=== PATIENT | female | born 1985 | race Caucasian/White ===

== ENCOUNTER → 2016-09-08 | Outpatient (CLI) | payer OTHER ==
[~2016-09-08] MED LIST: OXYC-360 PO
--- NOTE | 2016-09-09 16:06 | EKG ---
Date Performed: 09/08/2016 Time Performed: 13:29:00 PTAGE: 30 years EKG: Sinus rhythm . Possible septal infarct - age undetermined Abnormal ECG NO PREVIOUS TRACING DOCTOR: Dary Paz Interpretating Date/Time 09/09/2016 16:05:35
== END ==
LOC: HCAV 13:22
PROVIDERS: ATTEND Psychiatry & Neurology Child & Adolescent Psychiatry
DX: F41.8 Other specified anxiety disorders (principal); F33.0 Major depressive disorder, recurrent, mild; R94.31 Abnormal electrocardiogram [ECG] [EKG]
CPT/HCPCS: 93005

== ENCOUNTER 2016-11-09 10:28 | Emergency (ER) | payer OTHER ==
[~2016-11-09] VITALS: Ht 172.7 cm; Wt 62.0 kg
[2016-11-09 10:30] VITALS: BP 150/72; PULSE 90; RESP 20; TEMP 98.5; O2SAT 100
[2016-11-09] MEDS ORDERED: BIRTH CONTRO (10:54)
[2016-11-09] MEDS ORDERED: SODIUM CHLORIDE 0.9% FLUSH 10 ML FLUSH IVF PRN (11:30)
--- NOTE | 2016-11-09 11:32 | PD ---
HPI Chief Complaint: Neuro Symptoms/ Deficits Time Seen by Provider: 11:07 Travel History International Travel<30 days: No Contact w/Intl Traveler<30days: No Traveled to known affect area: No History of Present Illness HPI 30-year-old female presents to the emergency department for evaluation of right arm weakness. She states that on Monday night, she was sleeping and felt tingling down her right arm. She repositioned herself. However, starting Monday morning, she has had difficulty using her right arm. Patient presents history migraine headaches. She states that she was seeing a mental health doctor for anxiety and stated she had an abnormal EKG. 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 She also reports chest tightness that has been ongoing since she was a child. She relates this to anxiety. Patient reports history of bilateral broken wrists. She broke her right wrist in 2013, but has not had any issues since. Patient states that she is unable to use her right hand and is unable to write with her right hand now. She does report some right shoulder pain that started at the same time. She does report some lower back pain that radiates down her right leg. She has been ambulatory. Patient reports no chronic medical problems. She is not currently taking any medications other than control. She denies . She denies any illicit drug use. No fevers. No abdominal pain. Nausea, vomiting, diarrhea. [facility] Past Medical History ?: Not LMP: 10/14/16 : 1 Para: 1 Past Surgical History Body Medical Devices: mrsa in november 23 Other Surgery: Yes Social History Alcohol Use: Yes Tobacco Use: Yes (quit) Substance Use: No Allergies-Medications (Allergen,Severity, Reaction): Coded Allergies: No Known Allergies (Verified , 03/06/16) Reported Meds & Prescriptions Reported Meds & Active Scripts Active Reported [ Contro] Review of Systems Except as stated in HPI: all other systems reviewed are Neg Physical Exam Narrative GENERAL: Well-nourished, well-developed female patient, afebrile SKIN: Focused skin assessment warm/dry. HEAD: Normocephalic. Atraumatic. EYES: No scleral icterus. No injection or drainage. NECK: Supple, trachea midline. No JVD or lymphadenopathy. CARDIOVASCULAR: Regular rate and rhythm without murmurs, gallops, or rubs. Bilateral radial and pedal pulses are 2+. RESPIRATORY: Breath sounds equal bilaterally. No accessory muscle use. Lungs sounds are clear to auscultation. GASTROINTESTINAL: Abdomen soft, non-tender, nondistended. MUSCULOSKELETAL: No cyanosis, or edema. Patient cannot fully flex the right elbow. She also cannot hyperextend the right wrist. She can slightly flex the right wrist. She cannot extend her separate the digits of the right hand. BACK: Nontender without obvious deformity. No CVA tenderness. No midline spinal tenderness. She does have tenderness over the right trapezius muscle, right upper back NEUROLOGICAL: Awake and alert. Cranial nerves II through XII intact. Motor and sensory grossly within normal limits. Five out of 5 muscle strength in all muscle groups. Normal speech. [id number] is normal bilaterally. Patient is able to complete finger-nose bilaterally, but does not extend the wrist or fingers when doing this. Data Data Last Documented VS Vital Signs Date Time Temp Pulse Resp B/P (MAP) Pulse Ox O2 Delivery O2 Flow Rate FiO2 11/09/16 12:01 99 Room Air 11/09/16 10:50 17 11/09/16 10:30 98.5 90 Orders Orders Mri Brain W/O Contrast (11/09/16 ) Mri C Spine W/O Contrast (11/09/16 ) Electrocardiogram (11/09/16 11:25) Prothrombin Time / Inr (Pt) (11/09/16 11:25) Act Partial Throm Time (Ptt) (11/09/16 11:25) Complete Blood Count With Diff (11/09/16 11:25) Comprehensive Metabolic Panel (11/09/16 11:25) Creatine Kinase (Cpk) (11/09/16 11:25) Troponin I (11/09/16 11:25) Urinalysis - C+S If Indicated (11/09/16 11:25) Ecg Monitoring (11/09/16 11:25) Iv Access Insert/Monitor (11/09/16 11:25) Oximetry (11/09/16 11:25) Sodium Chloride 0.9% Flush (Ns Flush) (11/09/16 11:30) Ed Urine Pregnancytest Poc (11/09/16 11:25) CKMB (11/09/16 11:55) CKMB% (11/09/16 11:55) Labs Laboratory Tests Test 11/09/16 11:55 11/09/16 12:05 White Blood Count 7.5 TH/MM3 Red Blood Count 4.05 MIL/MM3 Hemoglobin 10.8 GM/DL Hematocrit 33.8 % Mean Corpuscular Volume 83.3 FL Mean Corpuscular Hemoglobin 26.6 PG Mean Corpuscular Hemoglobin Concent 31.9 % Red Cell Distribution Width 16.0 % Platelet Count 458 TH/MM3 Mean Platelet Volume 7.0 FL Neutrophils (%) (Auto) 74.1 % Lymphocytes (%) (Auto) 20.8 % Monocytes (%) (Auto) 4.4 % Eosinophils (%) (Auto) 0.2 % Basophils (%) (Auto) 0.5 % Neutrophils # (Auto) 5.5 TH/MM3 Lymphocytes # (Auto) 1.6 TH/MM3 Monocytes # (Auto) 0.3 TH/MM3 Eosinophils # (Auto) 0.0 TH/MM3 Basophils # (Auto) 0.0 TH/MM3 CBC Comment DIFF FINAL Differential Comment Prothrombin Time 10.1 SEC Prothromb Time International Ratio 0.9 RATIO Activated Partial Thromboplast Time 25.0 SEC Blood Urea Nitrogen 8 MG/DL Creatinine 0.66 MG/DL Random Glucose 80 MG/DL Total Protein 7.4 GM/DL Albumin 3.6 GM/DL Calcium Level 8.6 MG/DL Alkaline Phosphatase 48 U/L Aspartate Amino Transf (AST/SGOT) 21 U/L Alanine Aminotransferase (ALT/SGPT) 17 U/L Total Bilirubin 0.4 MG/DL Sodium Level 138 MEQ/L Potassium Level 3.9 MEQ/L Chloride Level 104 MEQ/L Carbon Dioxide Level 24.3 MEQ/L Anion Gap 10 MEQ/L Estimat Glomerular Filtration Rate 104 ML/MIN Total Creatine Kinase 223 U/L Creatine Kinase MB 1.1 NG/ML Creatine Kinase MB % 0.5 % Troponin I LESS THAN 0.02 NG/ML Urine Color LIGHT-YELLOW Urine Turbidity CLEAR Urine pH 6.0 Urine Specific [place] 1.013 Urine Protein NEG mg/dL Urine Glucose (UA) NEG mg/dL Urine Ketones 40 mg/dL Urine Occult Blood NEG Urine Nitrite NEG Urine Bilirubin NEG Urine Urobilinogen LESS THAN 2.0 MG/DL Urine Leukocyte Esterase NEG Urine RBC 1 /hpf Urine WBC 1 /hpf Urine Squamous Epithelial Cells 2 /hpf Urine Mucus FEW /lpf Microscopic Urinalysis Comment CATH-CULT NOT IND MDM Medical Decision Making Medical Screen Exam Complete: Yes Emergency Medical Condition: Yes Medical Record Reviewed: Yes Interpretation(s) MRI C-Spine - CONCLUSION: 1. Mild, diffuse disc bulge at C5-6. 2. However, the spinal canal and neural foramina are otherwise widely patent without cord or nerve root compromise to explain current clinical symptoms. 3. Asymmetry of the lobes of the thyroid with the left larger than right. Findings are nonspecific. Outpatient thyroid ultrasound could be performed for further characterization if clinically warranted. Differential Diagnosis Cervical spine abnormality versus cervical abscess versus intracranial abnormality Narrative Course 30-year-old female presents to the emergency department for evaluation of right arm weakness that started Monday night/Monday morning. I discussed the case with my attending physician, Dr. Manley, who agrees with plan. EKG, CBC, CMP, CK , troponin, PTT, PT/INR are ordered and pending. UA and urine tests are ordered and pending. MRI of the brain and MRI of the C-spine without contrast are ordered and pending. EKG shows sinus rhythm, heart rate 85, no acute ST changes. CBC shows slight anemia with hemoglobin 10.8, hematocrit 33.8. CMP shows no acute abnormality. CK is 223. Troponin is less than 0.02. Coags are unremarkable. UA shows no evidence of acute infection. ED urine test is negative. MRI of the brain is unremarkable. MRI of the cervical spine shows a mild, diffuse disc bulge at C5 to 6, spinal canal and neural foramina are otherwise widely patent without cord or nerve root compromise. Asymmetry of the lobes of thyroid with the left larger than the right, outpatient thyroid ultrasound recommended I spoke to the neurologist on-call, Dr. Chowdhury. She states symptoms are consistent with radial nerve palsy. She states the patient will need physical therapy and EMG testing. She would like the patient to be discharged to follow- up in the office. I discussed this with the patient who agrees with plan and disposition. The patient was discharged in stable condition with instructions, including return instructions and follow up instructions. Diagnosis Primary Impression: Radial nerve palsy Qualified Codes: G56.31 - Lesion of radial nerve, right upper limb Referrals: Lela Chowdhury MD call for appointment Patient Instructions: General Instructions, Radial Nerve Palsy (ED) Additional Instructions: Follow up with Dr. Chowdhury, neurologist. You will need physical therapy and EMG. Return to the emergency department for any acute, worsening of symptoms. Med/Other Pt SpecificInfo: No Change to Meds Disposition: 01 DISCHARGE HOME Condition: Stable Kiesha Harrison Nov 09, 2016 11:32
[2016-11-09 12:01] VITALS: O2SAT 99
[2016-11-09 12:09] LABS: AUTOMATED NEUTROPHIL # 5.5 TH/MM3 (1.8-7.7); BASOPHIL % 0.5 % (0.0-2.0); EOSINOPHIL % 0.2 % (0.0-4.0); HEMATOCRIT 33.8 % (35.0-46.0); HEMO FLAGS DIFF FINAL; LYMPH % 20.8 % (9.0-44.0); LYMPHOCYTE # 1.6 TH/MM3 (1.0-4.8); MEAN CELL VOLUME 83.3 FL (80.0-100.0); MEAN CORPUSCULAR HEMOGLOBIN 26.6 PG (27.0-34.0); MEAN CORPUSCULAR HGB CONC 31.9 % (32.0-36.0); MONO % 4.4 % (0.0-8.0); NEUT % 74.1 % (16.0-70.0); PLATELET COUNT 458 TH/MM3 (150-450); RED BLOOD COUNT 4.05 MIL/MM3 (4.00-5.30); WHITE BLOOD COUNT 7.5 TH/MM3 (4.0-11.0)
[2016-11-09 12:20] LABS: INTERNATIONAL NORMALIZED RATIO 0.9 RATIO; PROTHROMBIN TIME - PATIENT 10.1 SEC (9.8-11.6)
[2016-11-09 12:25] LABS: ANION GAP 10 MEQ/L (5-15); AST (GOT) 21 U/L (15-37); BICARBONATE 24.3 MEQ/L (21.0-32.0); BLOOD UREA NITROGEN 8 MG/DL (7-18); CHLORIDE 104 MEQ/L (98-107); GLOMERULAR FILTRATION RATE 104 ML/MIN (>89); POTASSIUM 3.9 MEQ/L (3.5-5.1); SODIUM (NA) 138 MEQ/L (136-145)
[2016-11-09 12:29] LABS: ALKALINE PHOSPHATASE 48 U/L (45-117); ALT (GPT) 17 U/L (10-53); CREATINE KINASE 223 U/L (26-192); TOTAL BILIRUBIN ADULT 0.4 MG/DL (0.2-1.0)
[2016-11-09 12:35] LABS: BLOOD, URINE NEG (NEG); COMMENT (UR) CATH-CULT NOT IND; CULTURE IF INDICATED CATH CULTURE NOT IND; GLUCOSE,URINE NEG (NEG); KETONE, URINE 40 mg/dL (NEG); MUCUS URINE FEW /lpf (OCC); NITRITE,URINE NEG (NEG); SQUAMOUS EPITHELIAL CELL URINE 2 /hpf (0-5); URINE COLOR LIGHT-YELLOW (YELLW/STRAW)
[2016-11-09 12:41] LABS: CKMB 1.1 NG/ML (0.5-3.6)
--- NOTE | 2016-11-09 14:24 | RADRPT ---
EXAM DATE/TIME: 11/09/2016 13:48 [facility] COMPARISON: No previous studies available for comparison. INDICATIONS : Right upper extremity weakness. MEDICAL HISTORY : None. SURGICAL HISTORY : Bilateral wrist pinning. ENCOUNTER: Subsequent ACUITY: 1 day PAIN SCORE: 0/10 LOCATION: neck. TECHNIQUE: Multiplanar, multisequence MRI examination of the cervical spine was performed. FINDINGS: VERTEBRAE: Normal vertebral body height. Homogeneous marrow signal. ALIGNMENT: No evidence of subluxation. CORD: Normal configuration and signal. POST FOSSA: The cerebellar tonsils are normal in position. MISCELLANEOUS: Asymmetry of the lobes of the thyroid with the left larger than right C2-C3: The thecal sac has a normal configuration. There is no evidence of disc herniation or spinal canal s tenosis. The neural foramina are patent bilaterally. C3-C4: The thecal sac has a normal configuration. There is no evidence of disc herniation or spinal canal s tenosis. The neural foramina are patent bilaterally. C4-C5: The thecal sac has a normal configuration. There is no evidence of disc herniation or spinal canal s tenosis. The neural foramina are patent bilaterally. C5-C6: Mild, diffuse disc bulge. Spinal canal and neural foramina are patent. C6-C7: The thecal sac has a normal configuration. There is no evidence of disc herniation or spinal canal s tenosis. The neural foramina are patent bilaterally. C7-T1: The thecal sac has a normal configuration. There is no evidence of disc herniation or spinal canal s tenosis. The neural foramina are patent bilaterally. CONCLUSION: 1. Mild, diffuse disc bulge at C5-6. 2. However, the spinal canal and neural foramina are otherwise widely patent without cord or nerve ro ot compromise to explain current clinical symptoms. 3. Asymmetry of the lobes of the thyroid with the left larger than right. Findings are nonspecific. O utpatient thyroid ultrasound could be performed for further characterization if clinically warranted. Elmer Keenan MD on November 09, 2016 at 14:19 Board Certified Radiologist. This report was verified electronically.
--- NOTE | 2016-11-09 14:58 | RADRPT ---
EXAM DATE/TIME: 11/09/2016 13:48 [facility] COMPARISON: No previous studies available for comparison. INDICATIONS : TIA. Right upper extremity weakness. MEDICAL HISTORY : None. SURGICAL HISTORY : Bilateral wrist pinning. ENCOUNTER: Subsequent ACUITY: 1 day PAIN SCORE: 0/10 LOCATION: head. Known MRI PrecautionsSedation Utilized? No Anesthesia Present? No MRI reaction? No If YES e xplain: TECHNIQUE: Multiplanar, multisequence MRI of the brain was performed without contrast. FINDINGS: CEREBRUM: The ventricles are normal for age. No evidence of midline shift, mass lesion, hemorrhage or acute in farction. No extraaxial fluid collections are seen. The pituitary gland and suprasellar cistern are normal in configuration. WHITE MATTER: No significant signal abnormalities are seen in the white matter. POSTERIOR FOSSA: The cerebellum and brainstem are intact. The 4th ventricle is midline. The cerebellopontine angle is unremarkable. The cerebellar tonsils are normal in position. DIFFUSION IMAGING: No focal areas of restricted diffusion are seen. No evidence of acute infarction. EXTRACRANIAL: The visualized portions of the orbits are unremarkable. Opacification of the left maxillary sinus. CONCLUSION: 1. Unremarkable MRI examination of the brain. Specifically, no evidence for acute infarction. Jonathan Urena MD on November 09, 2016 at 14:51 Board Certified Radiologist. This report was verified electronically.
--- NOTE | 2016-11-09 19:25 | EKG ---
Date Performed: 11/09/2016 Time Performed: 11:14:14 PTAGE: 30 years EKG: Sinus rhythm NORMAL ECG Compared to prior tracing no significant change DOCTOR: Kailash Marquez Interpretating Date/Time 11/09/2016 19:24:22
== END 2016-11-09 15:51 | disposition home or self-care (01) ==
LOC: NEPE 10:28
DX: G56.31 Lesion of radial nerve, right upper limb (principal); D64.9 Anemia, unspecified
CPT/HCPCS: 70551; 72141; 80053; 81001; 82550; 82552; 84484; 84703; 85025; 85610; 85730; 93005; 99285